=== PATIENT | female | born 1955 | race Caucasian/White ===

== ENCOUNTER 2022-10-29 12:58 | Emergency (ER) | payer MEDICARE, MEDICAID ==
[~2022-10-29] VITALS: Ht 154.9 cm; Wt 61.4 kg
[2022-10-29 13:03] VITALS: BP 160/105
[2022-10-29] MEDS ORDERED: LIDOcaine 1% W/epiNEPHrine 1:100,000 20ml vial IJ ONE (14:05)
[2022-10-29] MEDS ORDERED: CEPH500C2 PO (14:41)
[2022-10-29] MEDS ORDERED: SULF1TAB49 PO (14:41)
[2022-10-29] MEDS ORDERED: TRAM50TA2 PO (14:41)
== END 2022-10-29 14:52 | disposition home or self-care (01) ==
LOC: ER 12:59
DX: T63.301A Toxic effect of unspecified spider venom, accidental (unintentional), initial encounter (principal); L53.0 Toxic erythema; L02.415 Cutaneous abscess of right lower limb; Y92.89 Other specified places as the place of occurrence of the external cause
CPT/HCPCS: 10060; 87070; 87077; 87186; 99283; A6266; A6449

== ENCOUNTER 2024-04-24 14:21 | Emergency (ER) | payer MEDICARE, MEDICAID ==
[~2024-04-24] VITALS: Ht 154.9 cm; Wt 69.0 kg
[2024-04-24 14:22] VITALS: BP 165/114; PULSE 112; RESP 16; TEMP 97.8; O2SAT 99
[2024-04-24] MEDS ORDERED: DOXY100C43 PO (14:43)
[2024-04-24] MEDS ORDERED: MUPI22OI30 TOP (14:43)
[2024-04-27] MEDS ORDERED: KEN0.1O TOP (14:53)
[2024-04-27] MEDS ORDERED: SULF1TAB49 PO (14:53)
== END 2024-04-24 15:02 | disposition home or self-care (01) ==
LOC: ER 14:21
DX: S30.861A Insect bite (nonvenomous) of abdominal wall, initial encounter (principal); S20.369A Insect bite (nonvenomous) of unspecified front wall of thorax, initial encounter; W57.XXXA Bitten or stung by nonvenomous insect and other nonvenomous arthropods, initial encounter; Y93.89 Activity, other specified; Y92.89 Other specified places as the place of occurrence of the external cause; Y99.8 Other external cause status; Z88.0 Allergy status to penicillin
CPT/HCPCS: 99283

== ENCOUNTER 2024-05-23 09:48 | Emergency (ER) | payer MEDICARE, MEDICAID ==
[~2024-05-23] VITALS: Ht 154.9 cm; Wt 67.9 kg
[~2024-05-23 09:48] MED LIST: SULF1TAB49 PO
[2024-05-23 10:14] VITALS: BP 150/83; PULSE 96; RESP 16; TEMP 97.9; O2SAT 97
[2024-05-23] MEDS ORDERED: SULF1TAB49 PO (12:10)
[2024-05-23] MEDS ORDERED: MUPI15CR12 TOP (12:10)
== END 2024-05-23 12:23 | disposition home or self-care (01) ==
LOC: ER 09:48
DX: L03.211 Cellulitis of face (principal); Z88.0 Allergy status to penicillin
CPT/HCPCS: 99283

== ENCOUNTER 2024-11-04 17:25 | Emergency (ER) | payer MEDICARE, MEDICAID ==
[~2024-11-04] VITALS: Ht 154.9 cm; Wt 70.1 kg
[~2024-11-04 17:25] MED LIST changes: +MUPI15CR12 TOP; -SULF1TAB49 PO
[2024-11-04 17:31] VITALS: BP 143/87; PULSE 80; RESP 22; TEMP 98.7; O2SAT 95
--- NOTE | 2024-11-04 17:40 | ELECTROCARDIOGRAPH REPORT ---
[facility] Test Date: 2024-11-04 Test Time: 17:37:25 Pat Name: SEN KEARNEY Department: [facility]-ER Patient ID: [facility]-[id number] Room: Gender: F [employer]st: : 1955 Requested By: AJITH WHITEHEAD Order Number: [id number] Reading MD: Dr. Ajith Whitehead Measurements Intervals Mather Rate: 84 P: 54 VA: 146 QRS: 52 QRSD: 77 T: 14 QT: 336 QTc: 398 Interpretive Statements Sinus rhythm Electronically Signed On 11-04-2024 18:02:[address] Ajith Whitehead Please click the below link to view image of tracing.
[2024-11-04 17:59] LABS: BASOPHILS # (AUTO) 0.1 X10'3 (0-0.2); BASOPHILS % (AUTO) 0.8 % (0-1); EOSINOPHILS # (AUTO) 0.1 X10'3 (0-0.9); HEMATOCRIT 43.3 % (35.0-45.0); HEMOGLOBIN 15.1 g/dl (12.0-16.0); LYMPHOCYTES # (AUTO) 3.2 X10'3 (1.1-4.8); LYMPHOCYTES % (AUTO) 48.2 % (21-51); MEAN CORPUSCULAR HEMOGLOBIN 31.6 PG (27.0-31.0); MEAN CORPUSCULAR HGB CONC 34.9 g/dL (33.0-36.5); MEAN CORPUSCULAR VOLUME 90.6 FL (78-98); MEAN PLATELET VOLUME 8.3 FL (7.4-10.4); MONOCYTES # (AUTO) 0.7 X10'3 (0-0.9); MONOCYTES % (AUTO) 10.9 % (2-12); NEUTROPHILS # (AUTO) 2.6 X10'3 (1.8-7.7); NEUTROPHILS % (AUTO) 39.1 % (42-75); PLATELET COUNT 289 X10'3 (140-440); RED BLOOD COUNT 4.77 X10'6 (4.20-5.60); RED CELL DISTRIBUTION WIDTH 13.9 % (11.5-14.5); WHITE BLOOD COUNT 6.6 X10'3 (4.5-11.0)
[2024-11-04 18:22] LABS: ANION GAP 8 (8-16); BLOOD UREA NITROGEN 14 MG/DL (7-18); BUN/CREATININE RATIO 22.2 (10.0-20.0); CALCIUM 9.4 MG/DL (8.5-10.1); CHLORIDE 100 MMOL/L (99-107); CREATININE 0.63 MG/DL (0.40-0.90); GLUCOSE 99 MG/DL (70-104); POTASSIUM 3.7 MMOL/L (3.5-5.1); PRO BRAIN NATRIURETIC PEPTIDE 52 PG/ML (0-125); SODIUM 138 MMOL/L (135-145); TOTAL CARBON DIOXIDE 29.7 MMOL/L (24-32); eCRCL 65 ML/MIN; eGFR > 90 ML/MIN
--- NOTE | 2024-11-04 18:49 | RADIOLOGY REPORT ---
CHEST RADIOGRAPH Indication: CP Technique: Single frontal view of the chest was obtained Comparison: None FINDINGS: The cardiac silhouette is unremarkable. The lungs demonstrate perihilar, right basilar airspace opaci ties. The pulmonary vasculature is prominent. There is no pleural effusion.. There is no pneumothorax . Aortic atherosclerotic disease. IMPRESSION: 1. As above
[2024-11-05] MEDS ORDERED: AZIT-164 PO (12:06)
[2024-11-05] MEDS ORDERED: PRED50TA PO (12:06)
[2024-11-05] MEDS ORDERED: BENZ-38 PO (12:17)
[2024-11-05] MEDS ORDERED: ALBU8HFA INH (12:26)
== END 2024-11-05 01:01 | disposition left against medical advice (07) ==
LOC: ER 17:25
DX: R05.9 Cough, unspecified (principal); J00 Acute nasopharyngitis [common cold]; R09.81 Nasal congestion; Z88.0 Allergy status to penicillin; Z53.21 Procedure and treatment not carried out due to patient leaving prior to being seen by health care provider
CPT/HCPCS: 36415; 71045; 80048; 83880; 84484; 85025; 93005

== ENCOUNTER 2024-11-05 09:42 | Emergency (ER) | payer MEDICARE, MEDICAID ==
[~2024-11-05] VITALS: Ht 154.9 cm; Wt 58.6 kg
--- NOTE | 2024-11-05 09:54 | ELECTROCARDIOGRAPH REPORT ---
[facility] Test Date: 2024-11-05 Test Time: 09:51:42 Pat Name: SEN KEARNEY Department: EMERGENCY ROOM Patient ID: [facility]-[id number] Room: Gender: F Mate F[employer] Vessel: [place]JUANA : 1955 Requested By: UBALDO DESAI Order Number: [id number] Reading MD: Dr. Nael Chappell Measurements Intervals Hardy Rate: 75 P: 40 AK: 145 QRS: 66 QRSD: 80 T: 35 QT: 366 QTc: 409 Interpretive Statements Sinus rhythm Electronically Signed On 11-07-2024 6:35:[address] Nael Chappell Please click the below link to view image of tracing.
[2024-11-05 10:02] LABS: BASOPHILS # (AUTO) 0.1 X10'3 (0-0.2); EOSINOPHILS # (AUTO) 0.1 X10'3 (0-0.9); HEMATOCRIT 42.5 % (35.0-45.0); HEMOGLOBIN 14.7 g/dl (12.0-16.0); LYMPHOCYTES # (AUTO) 2.9 X10'3 (1.1-4.8); LYMPHOCYTES % (AUTO) 42.2 % (21-51); MEAN CORPUSCULAR HEMOGLOBIN 31.5 PG (27.0-31.0); MEAN CORPUSCULAR HGB CONC 34.6 g/dL (33.0-36.5); MEAN CORPUSCULAR VOLUME 91.2 FL (78-98); MONOCYTES # (AUTO) 0.7 X10'3 (0-0.9); MONOCYTES % (AUTO) 10.7 % (2-12); NEUTROPHILS # (AUTO) 3.1 X10'3 (1.8-7.7); NEUTROPHILS % (AUTO) 45.1 % (42-75); PLATELET COUNT 300 X10'3 (140-440); RED BLOOD COUNT 4.66 X10'6 (4.20-5.60); RED CELL DISTRIBUTION WIDTH 13.7 % (11.5-14.5); WHITE BLOOD COUNT 6.9 X10'3 (4.5-11.0)
[2024-11-05] MEDS: ipratropium/albuterol 3ml nebule NEB ONE (10:20)
[2024-11-05 10:21] VITALS: PULSE 74; RESP 22; O2SAT 96
[2024-11-05 10:23] LABS: ALBUMIN 3.8 G/DL (3.4-5.0); ANION GAP 12 (8-16); BLOOD UREA NITROGEN 13 MG/DL (7-18); BUN/CREATININE RATIO 25.5 (10.0-20.0); CALCIUM 8.9 MG/DL (8.5-10.1); CHLORIDE 101 MMOL/L (99-107); CREATININE 0.51 MG/DL (0.40-0.90); GLUCOSE 98 MG/DL (70-104); POTASSIUM 3.7 MMOL/L (3.5-5.1); PRO BRAIN NATRIURETIC PEPTIDE 34 PG/ML (0-125); SODIUM 138 MMOL/L (135-145); TOTAL CARBON DIOXIDE 25.4 MMOL/L (24-32); eCRCL 81 ML/MIN; eGFR > 90 ML/MIN
[2024-11-05 10:29] VITALS: PULSE 76; RESP 18; O2SAT 96
[2024-11-05] MEDS ORDERED: albuterol 2.5 MG/3 ML nebule NEB ONE (11:20)
[2024-11-05] MEDS: predniSONE 20 mg tablet PO ONE (11:40)
[2024-11-05] MEDS: azithromycin 250mg tablet PO ONE (11:41)
--- NOTE | 2024-11-05 12:05 | Physician Documentation ---
History of Present Illness ~ Chief Complaint: Shortness of Breath Stated Complaint: FLU LIKE SYMPTOMS Time Seen by MD: 09:59 Mode of Arrival: Ambulatory HPI Patient is a 69-year-old smoker. She has been sick for about a week she has had cough subjective fever and she feels short of breath at times. The cough is producing some green sputum no chest pain no lower extremity edema no hemoptysis. Subjective fever. She has a history of what sounds like COPD as she has used inhalers in the past but has not have any at the moment. She had a chest x-ray done in the ED last night but ended up left without being seen. Medication Reconciliation Allergies: Coded Allergies: Penicillins (Verified Allergy, Unknown, 11/04/24) Scheduled Mupirocin Calcium (Mupirocin), 1 APPLIC TOP Q8H Past Medical History Past Medical History: No Pertinent History Physical Exam Vital Signs: Temperature: 98.0, Heart Rate: 80, Respiratory Rate: 14, BP: 160/80, Pulse Oximetry: 98, Weight: 58.600 Oxygen Flow Rate: 0 Physical Exam General: Awake and Alert, no acute distress. HEENT: Conjunctiva pink, Sclera clear, Mucus Membranes moist. Neck: Supple without masses and tenderness. Resp: Unlabored. Restricted with mild wheezing Heart: Regular Rate and rhythm, normal S1 and S2 without murmur, rub or gallop. Abdomen: Soft and non tender no organomegaly Extremities: No cyanosis,clubbing or edema. Skin: Warm and Dry. Neuro: GCS 15; no focal deficits Progress Results/Orders Results/Orders Orders - UBALDO DESAI MD Monitor (11/05/24 09:48) Saline Lock (11/05/24 09:48) Oxygen (11/05/24 09:48) Hs Troponin I W Calculations (11/05/24 11:48) Hs Troponin I W Calculations (11/05/24 12:48) Svn Treatment (11/05/24 10:08) Svn Treatment (11/05/24 11:16) Completed Orders - UBALDO DESAI MD Cbc/Diff (11/05/24 09:48) BMP (11/05/24 09:48) PBNP (11/05/24 09:48) Electrocardiogram (11/05/24 09:48) Hs Troponin I W Calculations (11/05/24 09:48) Ipratropium/Albuterol Nebule (Ipratrop/A (11/05/24 10:10) Prednisone Tablet (Prednisone Tablet) (11/05/24 11:20) Azithromycin Tablet (Zithromax Tablet) (11/05/24 11:20) Albuterol 2.5mg/3ml Nebule (Proventil 2. (11/05/24 11:20) Medications Received in ER Medications (Trade) Dose Ordered Sig/Larisa Route PRN Reason Start Time Stop Time Status Last Admin Dose Admin (ipratrop/ albuterol 0.5-3(2.5) MG/3ml nebule) 3 ml ONCE ONCE NEB 11/05/24 10:10 11/05/24 10:11 DC 11/05/24 10:20 3 ML (predniSONE tablet) 60 mg ONCE ONCE PO 11/05/24 11:20 11/05/24 11:30 DC 11/05/24 11:40 60 MG (Zithromax tablet) 500 mg ONCE ONCE PO 11/05/24 11:20 11/05/24 11:30 DC 11/05/24 11:41 500 MG Vital Signs 11/05/24 11/05/24 11/05/24 11/05/24 09:44 10:06 10:07 10:21 Temp 98.0 98.0 Pulse 78 77 74 Resp 15 13 18 22 B/P (MAP) 143/90 129/83 (98) Pulse Ox 97 96 96 O2 Delivery Room Air* O2 Flow Rate 0 0 FiO2 21 11/05/24 11/05/24 11/05/24 10:29 10:47 11:42 Temp 98.0 98.0 Pulse 76 70 80 Resp 18 13 14 B/P (MAP) 129/83 (98) 160/80 (106) Pulse Ox 96 97 98 O2 Delivery Room Air* O2 Flow Rate 0 0 0 FiO2 21 21 Laboratory Tests Test 11/05/24 09:54 11/05/24 11:39 White Blood Count 6.9 Red Blood Count 4.66 Hemoglobin 14.7 Hematocrit 42.5 Mean Corpuscular Volume 91.2 Mean Corpuscular Hemoglobin 31.5 H Mean Corpuscular Hemoglobin Concent 34.6 Red Cell Distribution Width 13.7 Platelet Count 300 Mean Platelet Volume 8.0 Neutrophils (%) (Auto) 45.1 Lymphocytes (%) (Auto) 42.2 Monocytes (%) (Auto) 10.7 Eosinophils (%) (Auto) 1.0 Basophils (%) (Auto) 1.0 Neutrophils # (Auto) 3.1 Lymphocytes # (Auto) 2.9 Monocytes # (Auto) 0.7 Eosinophils # (Auto) 0.1 Basophils # (Auto) 0.1 CBC Comment Sodium Level 138 Potassium Level 3.7 Chloride Level 101 Carbon Dioxide Level 25.4 Anion Gap 12 Blood Urea Nitrogen 13 Creatinine 0.51 Estimated GFR/1.73 m2 > 90 BUN/Creatinine Ratio 25.5 H Glucose Level 98 Calcium Level 8.9 Troponin I High Sensitivity < 4 L Troponin I High Sens Percent Delta Troponin I Hi Sens Absolute Change Pro-B-Type Natriuretic Peptide 34 Albumin 3.8 Chemistry Comments Medical Decision Making Findings This is a 69-year-old female who is a smoker history of COPD she is here for a week of cough producing some green sputum. Her labs are reassuring her chest x- ray is negative. She was given a DuoNeb treatment. This improved aeration increased wheezing. She was given a 2nd neb treatment of albuterol 5 mg. She still has a mild residual wheezing but good movement of air feels much better. Good pulse ox on room air. She is 97%. She was given oral prednisone dose of azithromycin in the ED. prescriptions for prednisone albuterol inhaler and azithromycin. Departure Disposition: 01 HOME / SELF CARE / HOMELESS Impression: Primary Impression: Acute exacerbation of chronic obstructive airways disease Additional Impression: Acute bronchitis Qualified Codes: J20.9 - Acute bronchitis, unspecified Condition: Stable Discharge Instructions: Form - COPD Action Plan Additional Instructions: Use the inhaler two puffs every 4 hours as needed. Take the prednisone and antibiotics until gone. You need to rechecked with your regular doctor this week. Return to the ED for worsening symptoms fever or chest pain coughing up blood or any concerns. Referrals: NO PRIMARY CARE PROVIDER (PCP) Education Educated: Patient Educated regarding: diagnosis, treatment, prognosis, need for follow up Signature Scribe Signature: no scribe Attestation: no scribe UBALDO DESAI MD Nov 05, 2024 12:04
[2024-11-05] MEDS ORDERED: AZIT-164 PO (12:06)
[2024-11-05] MEDS ORDERED: PRED50TA PO (12:06)
[2024-11-05] MEDS ORDERED: BENZ-38 PO (12:17)
[2024-11-05 12:20] VITALS: BP 130/75; PULSE 82; RESP 16; TEMP 98; O2SAT 98
[2024-11-05] MEDS ORDERED: ALBU8HFA INH (12:26)
== END 2024-11-05 12:29 | disposition home or self-care (01) ==
LOC: ER 09:43
DX: J44.1 Chronic obstructive pulmonary disease with (acute) exacerbation (principal); J20.9 Acute bronchitis, unspecified; F17.200 Nicotine dependence, unspecified, uncomplicated
CPT/HCPCS: 36415; 80048; 83880; 84484; 85025; 93005; 94640; 99285; J7512; 94760